=== PATIENT | female | born 1950 | race Caucasian/White ===

== ENCOUNTER → 2017-02-20 | Day surgery (SDC) | payer OTHER ==
[~2017-02-20] MED LIST: ADVAI250I; ASPI81TA11 OR; BUPIVACAINE HCL PF 0.25% 30 ML VIAL ONE; CLINDAMYCIN PHOS 600 MG/4 ML VIAL ONE; ETOD400T PO; KETOROLAC TROMETHAMINE 30 MG/ML (IVP) VIAL IV PUSH ONE; LACTATED RINGER'S 1000 ML INJ 1,000 ML ONE; MEDR4PAK3 PO; ONDANSETRON HCL 4 MG/2 ML VIAL IV PUSH ONE; PROPOFOL 200 MG/20 ML AMP IV ONE; SODIUM CHLORIDE 0.9% INJ 100 ML IV ONE; TRIAMCINOLONE ACETONIDE 40 MG/ML VIAL ONE; VITA400D PO; [UNRECOGNIZED DRUG - REMARK]
--- NOTE | 2017-02-22 08:50 | MP ---
cc: SVETLANA CORREA DPM DATE OF SURGERY 02/20/2017 PREOPERATIVE DIAGNOSIS Right chronic plantar fasciitis. POSTOPERATIVE DIAGNOSIS Right chronic plantar fasciitis. PROCEDURES PERFORMED Partial right endoscopic plantar fasciotomy with [place] micro fasciotomy debridement. SPECIMEN None ESTIMATED BLOOD LOSS Less than 30 mL COMPLICATIONS None ANESTHESIA General with local 0.25% Marcaine plain 20 cc and 0.5 cc of Kenalog 40. DRAINS None TOURNIQUET TIME 15 minutes approximately to 215 mmHg about the patient's right ankle. PLAN OF ACTIVITY PACU then DC home once stable per same-day surgery criteria. JUSTIFICATION FOR THE PROCEDURE This is a pleasant 66-year-old female with chronic plantar fasciitis. She actually had surgery performed approximately 15 years ago on the left foot. EPF was very successful. She wished to move forward with the same surgery. We devised a plan to move forward with the previous stated surgery EPF with the added [place] micro fasciotomy to aid in healing. The risks and benefits explained. PROCEDURE IN DETAIL Under mild sedation, the patient was brought into the operating room, placed on the operative in the supine position. Following the induction of general anesthesia, local anesthesia was attained about the hind foot utilizing standard block fashion. The right foot was then scrubbed, prepped and draped in the usual aseptic fashion. The right foot was elevated, exsanguinated and the previously placed mid ankle tourniquet was inflated to 215 mmHg. Previous markings with the skin scribe from the preop area noted at the point of maximum tenderness at the insertional medial plantar fascial band. Approximately 3 cm x 4 cm grid was outlined and multiple small markings utilizing a skin scribe took place marking approximately 5 mm apart for approximately 25 holes. Next, a K-wire was introduced through these holes and creating a channel or tunnel for the [place] micro-debridement system. This was then advanced palpating the plantar fascia and deployed at level four and then once I felt the deepest portion of the fascia, it was then deployed again at level four. This happened through the multiple holes micro fasciotomy sites of the plantar fascia. Next, the instep incision took place at the insertional medial plantar fascial band. Sharp and blunt dissection was carried down deep through adipose. The soft tissue elevator was introduced superficial to the plantar fascia, but deep to the plantar fat pad. The obturator and cannula was introduced. The camera shown dorsally the plantar fascia. Next, utilizing the right medical push blade one-third of the plantar fascia was then severed. Superficial bands were palpated upon removing the camera which were severed utilizing Metzenbaum scissors. The wound was flushed copious amounts of normal saline. Suture was used to close the 1-cm incision utilizing nylon. A 1/2 cc of Kenalog 40 was infiltrated deep into the plantar fasciotomy site. A bulky bandage was placed. The patient transferred from OR to PACU. Upon relieving the tourniquet, there was a prompt hyperemic response to all digits without any delayed capillary fill time. A bulky bandage was placed on the patient within a controlled ankle motion boot. She is partial weight bear to tolerance. I will see the patient within 3-5 days. SERGIO Maciel/CYNTHIA /2:46 PM /8:38 AM
== END | disposition home or self-care (01) ==
LOC: ESDC 12:57
PROVIDERS: ATTEND Podiatrist Foot & Ankle Surgery
DX: M72.2 Plantar fascial fibromatosis (principal)
CPT/HCPCS: 01464; 29893; J1885; J2405; J3010; J3301; J7120